=== PATIENT | male | born 1980 ===

== ENCOUNTER 2023-09-28 18:34 | Inpatient (IN) | payer MEDICAID, SELFPAY ==
[2023-09-28] VITALS (41 sets, daily range): BP systolic 94–164; BP diastolic 40–123; PULSE 67–101; RESP 13–29; TEMP 36.4; O2SAT 89–99
--- NOTE | 2023-09-28 19:15 | DI.CT_ITS ---
Exam(s) CT HEAD CERV SPINE FACIAL WO EXAM: CT HEAD CERV SPINE FACIAL WO CLINICAL HISTORY: fall, HI, weakness. TECHNIQUE: Imaging Protocol: Axial computed tomography images with coronal and sagittal reformatted images were created and reviewed COMPARISON: No exams were available for comparison FINDINGS: CT BRAIN: There are no skull fractures nor fluid in the visualized paranasal sinuses. There is no evidence of intracranial hemorrhage, mass effect, or shift of midline structures. There are no extra-axial fluid collections. The ventricles are not enlarged or shifted and there is no blo od within the ventricular system nor within the basal cisterns. CT MAXILLOFACIAL BONES: There is some mucosal thickening and fluid noted in left maxillary sinus and the floor of the left or bit appears slightly depressed. Probably sequelae of prior left orbital blowout fracture, age indete rminate. No bone dehiscence. Right maxillary sinus unremarkable. No evidence of nasal bone fractur e nor other facial fractures. Orbits appear unremarkable. CT CERVICAL SPINE: There is no evidence of fracture nor listhesis. No significant prevertebral soft tissue swelling. N o facet malalignment evident. No significant osseous lesions evident. Chronic disc space narrowing C5-6 level and anterior osseous lipping at this level evident. Facet jonathon ints at this level appear unremarkable as do the remainder of the facet joints. IMPRESSION: No acute intracranial findings on this noninfused CT scan of the brain. Asymmetric mucosal thickening small amount of fluid in the left maxillary sinus and slight depression of the floor of the left orbit.May not be acute but cannot exclude subtle orbital floor blowout frac ture.. No evidence of cervical spine fracture, malalignment, nor acute compromise of the cervical spinal can al. First read by [facility] Called by myself to hospitalist 09/29/2023 2:50 p.m. RADIATION DOSE DELIVERED: 2,368.84mGy.cm Total DLP DATA REPOSITORY: All CT scans at this facility are submitted to the National Radiology Data Registry (NRDR) Dose Index Registry (DIR) with the [employer] ([employer]). RADIATION OPTIMIZATION: All CT scans at this facility use at least one of these dose optimization te chniques: automated exposure control; mA and/or kV adjustment per patient size (includes targeted exa ms where dose is matched to clinical indication); or iterative reconstruction.
--- NOTE | 2023-09-28 19:15 | DI.CT_ITS ---
Exam(s) CT CHEST/ABD/PEL W EXAM: CT CHEST/ABD/PEL W CLINICAL HISTORY: vomiting blood, abd pain. TECHNIQUE: Imaging Protocol: Axial computed tomography images with coronal and sagittal reformatted images were created and reviewed CONTRAST MATERIAL: Intravenous: Omnipaque 350 Contrast volume:100 ml Oral: None COMPARISON: No exams were available for comparison FINDINGS: CHEST: LUNGS: No infiltrates nor pleural effusions. No ominous pulmonary nodules. No findings in the trach ea and mainstem bronchi. MEDIASTINUM: There is no hilar nor mediastinal adenopathy. Visualized thyroid unremarkable. CARDIAC: Heart size is normal. There is no pericardial effusion.Caliber of the thoracic aorta is wit hin normal limits. OSSEOUS: No significant osseous lesions.. ABDOMEN: There is no ascites. LIVER: There are no focal hepatic lesions nor dilatation of intrahepatic ducts. GALLBLADDER/BILIARY: No obvious gallbladder pathology. CBD is not dilated. PANCREAS: No evidence of pancreatic mass nor dilatation of the pancreatic duct. SPLEEN: Spleen is not enlarged. There are no intrasplenic lesions. Splenic and portal veins are kelley nt. ADRENALS: Small nodule noted in the lateral limb of the right adrenal gland measuring 1.8 x 1.0 cm. Probable incidental adenoma. Opposite-left adrenal gland is unremarkable. KIDNEYS: No calculi nor hydronephrosis. No solid renal masses. Small 7 mm benign cyst noted in the le ft kidney which does not require follow-up. URINARY BLADDER: Mild uniform thickening of the bladder wall either related to cystitis or under dist ension. ABDOMINAL AORTA: Abdominal aorta is not enlarged. LYMPH NODES: There is no retroperitoneal nor paraaortic adenopathy. ABDOMINAL WALL: No evidence of significant anterior abdominal wall nor inguinal hernia. GI: There is no evidence of bowel obstruction.There is circumferential thickening of the descending c olon and sigmoid consistent with probable colitis pattern. No diverticulitis. PELVIS: LYMPH NODES: There is no intrapelvic nor inguinal adenopathy. GI: No evidence of appendicitis.No evidence of sigmoid diverticulitis. URINARY BLADDER: Uniformly thickened bladder wall. REPRODUCTIVE: Prostate size upper normal. Seminal vesicles unremarkable. OSSEOUS: No significant osseous lesions. No fractures. IMPRESSION: 1. No significant intrathoracic findings. 2. Colitis pattern in the descending-left colon and sigmoid. No diverticulitis. RADIATION DOSE DELIVERED: 1,353.91mGy.cm Total DLP DATA REPOSITORY: All CT scans at this facility are submitted to the National Radiology Data Registry (NRDR) Dose Index Registry (DIR) with the [employer] (ACR). RADIATION OPTIMIZATION: All CT scans at this facility use at least one of these dose optimization te chniques: automated exposure control; mA and/or kV adjustment per patient size (includes targeted exa ms where dose is matched to clinical indication); or iterative reconstruction.
--- NOTE | 2023-09-28 19:15 | RT.EKG_ITS ---
APPROVED REPORT Exam: Resting ECG Reason for Exam: weakness Patient Location: E HR:95 bpm ECG Measurements Heart Rate 95 AXIS CA 168 P 77 QRSd 86 QRS 82 QT 339 T 61 QTc 428 Conclusion Sinus arrhythmia 95 no stemi
[2023-09-28] MEDS: Prochlorperazine 10 MG/2 ML VIAL IVP (19:45)
[2023-09-28] MEDS: Normal Saline 1,000 ML 1000 ML IV (19:45)
[2023-09-28] MEDS: Pantoprazole 40 MG VIAL IVP (19:45)
[2023-09-28 21:09] LABS: Abs Immature Grans 0.07 10^3/uL (0.0-0.06); Absolute Monocyte Count 1.25 10^3/uL (0.1-0.8); Absolute Neutrophil Count 14.08 10^3/uL (1.2-6.7); Basophils % 0.2 %; Eosinophils % 0.1 %; HCT 43.5 % (40.0-50.0); Immature Grans % 0.4 %; Lymphocytes % 8.4 %; MCH 31.3 pg (27.0-33.0); MCHC 34.5 % (32.0-36.0); MCV 91 fL (80-95); MPV 9.6 fL (8.0-11.0); Monocytes % 7.4 %; Neutrophils % 83.5 %; Platelet Count 264 10^3/uL (130-400); RBC 4.79 10^6/uL (4.36-5.78); RDW 13.9 % (11.8-14.1); RDW-SD 46.5 fL; WBC 16.86 10^3/uL (4.4-10.8)
[2023-09-28 21:10] LABS: Absolute Basophil Count 0.03 10^3/uL (0.0-0.2); Absolute Eosinophil Count 0.02 10^3/uL (0.0-0.7); Absolute Lymphocyte Count 1.42 10^3/uL (1.2-3.4)
[2023-09-28 21:12] LABS: Bilirubin Negative (Negative); Blood Negative (Negative); Clarity Clear (Clear); Glucose Negative (Negative); Ketones 15 mg/dL (Negative); Leukocyte Esterase Negative (Negative); Nitrite Negative (Negative); Specific Gravity >= 1.030 (1.005-1.025); Urobilinogen 0.2 mg/dL (Up to 0.2); pH 5.5 (5-8)
[2023-09-28] MEDS: Omnipaque 350 MG/ML 100 ML BTL IJ (21:16)
[2023-09-28] MEDS: Normal Saline - Diluent 50 ML VIAL IJ (21:22)
[2023-09-28 21:23] LABS: *AMPHETAMINES SCREEN URINE Negative (Negative); *BARBITURATES SCREEN URINE Positive (Negative); *BENZODIAZEPINES SCREEN URINE Negative (Negative); Cannabinoids THC Positive (Negative); Cocaine Screen,Urine Positive (Negative); METHADONE URINE SCREEN Negative (Negative); OPIATES URINE SCREEN Negative (Negative)
[2023-09-28 21:24] LABS: Tricyclic Antidepressants Negative (Negative)
[2023-09-28 21:25] LABS: Bacteria Rare HPF (Negative); C & S Indicated? No; Casts Negative LPF (Negative); Crystals Negative HPF (Negative); Epithelial Cells Rare HPF (Negative); Mucus Negative (Negative); RBC Negative HPF (0-2); WBC 0-2 HPF (0-5)
[2023-09-28 21:30] LABS: Prothrombin Time 10.5 sec (9.1-11.1)
[2023-09-28 21:31] LABS: Ammonia 15 umol/L (11-32)
[2023-09-28 21:33] LABS: ALT 29 U/L (16-63); AST 32 U/L (15-37); Albumin 3.7 g/dL (3.4-5.0); Alkaline Phosphatase 68 U/L (46-116); Anion Gap 12.4 mmol/L (3-11); BUN 14 mg/dL (7-18); Bilirubin, Total 0.6 mg/dL (0.2-1.0); CO2 23.6 mmol/L (21.0-32.0); CREATININE 0.9 mg/dL (0.70-1.30); Calcium 8.1 mg/dL (8.5-10.1); Chloride 106 mmol/L (98-107); ETHANOL BLOOD 24.8 mg/dL (<10); Estimated GFR 108.68 (mL/min/1.73m2); Glucose 90 mg/dL (74-106); Magnesium 1.9 mg/dL (1.8-2.4); Potassium 3.7 mmol/L (3.5-5.1); Sodium 142 mmol/L (136-145); Total Protein 6.8 g/dL (6.4-8.2)
--- NOTE | 2023-09-28 22:06 | DI.VRAD_ITS ---
PROCEDURE INFORMATION: Exam: CT Head Without Contrast Exam date and time: 09/28/2023 9:20 PM Age: 43 years old Clinical indication: Injury or trauma; Fall and other: Fall, hi, weakness TECHNIQUE: Imaging protocol: Computed tomography of the head without contrast. COMPARISON: No relevant prior studies available. FINDINGS: Brain: Normal. No hemorrhage. Unremarkable white matter. No mass effect. Cerebral ventricles: No ventriculomegaly. Paranasal sinuses: There is fluid in the right mastoid air cells, left maxillary sinus and bilateral ethmoid air cells. Mastoid air cells: See Paranasal sinuses finding. Bones: Unremarkable. No acute fracture. Soft tissues: Unremarkable. Other findings: There is a right lateral frontal subgaleal. IMPRESSION: No intracranial posttraumatic changes. PROCEDURE INFORMATION: Exam: CT Maxillofacial Without Contrast Exam date and time: 09/28/2023 9:20 PM Age: 43 years old Clinical indication: Injury or trauma; Fall and other: Fall, hi, weakness TECHNIQUE: Imaging protocol: Computed tomography of the face without contrast. COMPARISON: No relevant prior studies available. FINDINGS: Orbital cavities: Orbits are normal. Globes are unremarkable. Bones: No acute fracture. Paranasal sinuses: Mucosal disease of the left maxillary sinus. Soft tissues: Unremarkable. IMPRESSION: No posttraumatic changes. PROCEDURE INFORMATION: Exam: CT Cervical Spine Without Contrast Exam date and time: 09/28/2023 9:20 PM Age: 43 years old Clinical indication: Injury or trauma; Fall and other: Fall, hi, weakness TECHNIQUE: Imaging protocol: Computed tomography of the cervical spine without contrast. COMPARISON: No relevant prior studies available. 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 Narrowing of the C5-C6 with anterior osteophytes and posterior osteophytes causing mild bony canal stenosis. Lungs: Lung apices are normal. Soft tissues: Unremarkable. IMPRESSION: No posttraumatic changes in the cervical spine. Dictated and Authenticated by: Christopher Ruelas MD. Ordering:MITCHELL Viramontes MD
--- NOTE | 2023-09-28 22:28 | DI.VRAD_ITS ---
PROCEDURE INFORMATION: Exam: CT Chest With Contrast; Diagnostic Exam date and time: 09/28/2023 9:29 PM Age: 43 years old Clinical indication: Other: Vomiting blood, abd pain TECHNIQUE: Imaging protocol: Diagnostic computed tomography of the chest with contrast. 3D rendering (Not supervised by radiologist): MIP and/or 3D reconstructed images were created by the technologist. Contrast material: OMNIPAQUE; Contrast volume: 100 ml; Contrast route: INTRAVENOUS (IV); COMPARISON: CT HEAD CERV SPINE FACIAL WO 09/28/2023 9:20 PM FINDINGS: Thymus: A normal amount of residual thymus tissue is present in the anterior/superior mediastinum. Lungs: There is no evidence of focal pulmonary consolidation. Pleural spaces: There is no evidence of pneumothorax. There are no pleural effusions present. Heart: The cardiac structures are normal. The cardiac silhouette is within normal limits. Coronary arteries: No evidence of significant coronary artery atherosclerotic plaque or calcification. Mediastinal space: The mediastinum is normal. Lymph nodes: Mildly enlarged lymph nodes present within the pretracheal region measuring 15 mm in diameter. Vasculature: The pulmonary vasculature is normal. Intraperitoneal space: Please see CT of the abdomen and pelvis. Bones/joints: The spine, sternum, ribs, and pectoral girdles show no evidence of acute abnormality Soft tissues: There are no soft tissue masses or calcifications. IMPRESSION: No active cardiopulmonary disease. PROCEDURE INFORMATION: Exam: CT Abdomen And Pelvis With Contrast Exam date and time: 09/28/2023 9:29 PM Age: 43 years old Clinical indication: Other: Vomiting blood, abd pain TECHNIQUE: Imaging protocol: Computed tomography of the abdomen and pelvis with contrast. 3D rendering (Not supervised by radiologist): MIP and/or 3D reconstructed images were created by the technologist. Contrast material: OMNIPAQUE; Contrast volume: 100 ml; Contrast route: INTRAVENOUS (IV); COMPARISON: No relevant prior studies available. FINDINGS: Liver: Focal fatty change present at the falciform ligament. There are no focal liver lesions present. There is no evidence of intrahepatic or extrahepatic biliary ductal dilation. Gallbladder and bile ducts: The gallbladder is normal. There is no cholelitiasis, wall thickening or pericholecystic fluid to suggest cholecystitis. Pancreas: The pancreas is normal. Spleen: The spleen is normal. Adrenal glands: The adrenal glands are normal. Kidneys and ureters: 1 cm simple cyst present within the lower pole left kidney posteriorly. The kidneys are otherwise normal. The ureters are normal caliber and follow a normal caliber and course. Stomach and bowel: The stomach is nondistended. There is mild gastric wall thickening. Consider gastritis. There is diffuse inflammatory bowel wall thickening involving the sigmoid colon and descending colon. There is bowel wall edema. There is adjacent inflammatory change seen within the peritoneal fat and mesentery. This likely represents acute colitis. An underlying mass is not excluded. Appendix: A normal appendix is identified. There is no evidence of distention or periappendiceal inflammation to suggest appendicitis. Intraperitoneal space: There is no free intraperitoneal air. There is no evidence of free intraperitoneal or pelvic fluid. Vasculature: The aorta demonstrates mild atherosclerotic calcification. The aorta is unremarkable without evidence of significant atherosclerosis or aneurysmal disease. The peripheral arterial vascular system visualized is unremarkable. The portal venous system visualized is unremarkable. The peripheral venous vascular system visualized is unremarkable. Lymph nodes: There is no evidence of lymphadenopathy. Urinary bladder: There is nonspecific bladder wall thickening. This may be related to incomplete bladder filling. There is nonspecific bladder wall thickening. This may be related to incomplete bladder filling. Reproductive: The prostate gland and seminal vesicles are normal. Bones/joints: The skeletal structures and soft tissues show no evidence of fracture or other acute processes. Soft tissues: The extra-abdominal soft tissues are normal. There is a fat-containing umbilical hernia. IMPRESSION: 1. The stomach is nondistended. There is mild gastric wall thickening. Consider gastritis. 2. There is diffuse inflammatory bowel wall thickening involving the sigmoid colon and descending colon. There is bowel wall edema. There is adjacent inflammatory change seen within the peritoneal fat and mesentery. This likely represents acute colitis. An underlying mass is not excluded. Dictated and Authenticated by: Jacob Rae MD. Ordering:MITCHELL Viramontes MD
[2023-09-28 22:35] LABS: Lipase 53 U/L (16-77)
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
[2023-09-29] VITALS (33 sets, daily range): BP systolic 95–135; BP diastolic 65–93; PULSE 56–87; RESP 14–26; TEMP 37.2–37.8; O2SAT 90–100
[2023-09-29 00:02] LABS: PTT Activated 25.4 sec (23.6-32.8)
--- NOTE | 2023-09-29 00:06 | W.PC.ACHO ---
Registration Status: REG ER Primary Language: Preferred Language: ED Information & Data Chief Complaint Abd Prob 09/28/23 22:55 Other Complaint PsychEval 09/28/23 18:30 Triage Note 10 of 10 burning pain Lower 09/28/23 18:30 L quad of abd nausea and vomiting. Most Recent Vital Signs Temperature 36.4 C 09/28/23 18:35 Temperature Source Tympanic 09/28/23 18:35 Pulse 92 H 09/28/23 20:31 Pulse 89 09/28/23 20:40 Respiratory Rate 20 09/28/23 20:40 Respiratory Effort Normal 09/28/23 18:35 Respiratory Pattern Tachypnea 09/28/23 19:01 Blood Pressure 114/63 09/28/23 20:31 Blood Pressure Mean 78 09/28/23 20:31 Blood Pressure Position Sitting 09/28/23 18:35 Pulse Oximetry 91 L 09/28/23 20:40 Oxygen Delivery Method Room Air 09/28/23 18:35 Oxygen Flow Rate 0 09/28/23 18:35 Active Medications Generic Name Dose Route Start Last Admin Trade Name Nai PRN Reason Stop Dose Admin Iohexol 100 ml 09/28/23 21:30 09/28/23 21:16 Omnipaque 350 Mg/Ml 100 Ml Btl IJ 10/28/23 23:59 100 ml DIRECTED TEOFILO Administration Sodium Chloride 50 ml 09/28/23 21:30 09/28/23 21:22 Normal Saline - Diluent 50 Ml Vial IJ 50 ml .FOR DI USE TEOFILO Administration IV IV Catheter Type [Antecubital] Peripheral IV IV Catheter Gauge [Antecubital 18 ] Diet Orders Category Date Time Status Regular/Normal [DIET] Nutrition 09/29/23 Breakfast Ordered Diagnostics 09/28/23 09/28/23 09/28/23 Range/Units Unknown 21:04 21:00 WBC Pending 16.86 H (4.4-10.8) 10^3/uL RBC Pending 4.79 (4.36-5.78) 10^6/uL Hgb Pending 15.0 (13.5-17.5) g/dL Hct Pending 43.5 (40.0-50.0) % MCV Pending 91 (80-95) fL MCH Pending 31.3 (27.0-33.0) pg MCHC Pending 34.5 (32.0-36.0) % RDW Pending 13.9 (11.8-14.1) % Plt Count Pending 264 (130-400) 10^3/uL MPV Pending 9.6 (8.0-11.0) fL Immature Gran % 0.4 % Neutrophils % 83.5 % Lymphocytes % 8.4 % Monocytes % 7.4 % Eosinophils % 0.1 % Basophils % 0.2 % Nucleated RBC % 0.0 (0.0-0.3) % Absolute Neutrophils 14.08 H (1.2-6.7) 10^3/uL Absolute Lymphocytes 1.42 (1.2-3.4) 10^3/uL Absolute Monocytes 1.25 H (0.1-0.8) 10^3/uL Absolute Eosinophils 0.02 (0.0-0.7) 10^3/uL Absolute Basophils 0.03 (0.0-0.2) 10^3/uL PT 10.5 (9.1-11.1) sec INR 1.0 (0.9-1.1) APTT Pending Sodium 142 (136-145) mmol/L Potassium 3.7 (3.5-5.1) mmol/L Chloride 106 (98-107) mmol/L Carbon Dioxide 23.6 (21.0-32.0) mmol/L Anion Gap 12.4 H (3-11) mmol/L BUN 14 (7-18) mg/dL Creatinine 0.9 (0.70-1.30) mg/dL Est GFR (CKD-EPI 2020) 108.68 (mL/min/1.73m2) Glucose 90 (74-106) mg/dL Calcium 8.1 L (8.5-10.1) mg/dL Magnesium 1.9 (1.8-2.4) mg/dL Total Bilirubin 0.6 (0.2-1.0) mg/dL AST 32 (15-37) U/L ALT 29 (16-63) U/L Alkaline Phosphatase 68 (46-116) U/L Ammonia 15 (11-32) umol/L Total Protein 6.8 (6.4-8.2) g/dL Albumin 3.7 (3.4-5.0) g/dL Lipase 53 (16-77) U/L Urine Color (Yellow) Urine Clarity (Clear) Urine pH (5-8) Ur Specific [place] (1.005-1.025) Urine Protein (Neg-Trace) mg/dL Urine Ketones (Negative) mg/dL Urine Blood (Negative) Urine Nitrite (Negative) Urine Bilirubin (Negative) Urine Urobilinogen (Up to 0.2) mg/dL Ur Leukocyte Esterase (Negative) Urine RBC (0-2) HPF Urine WBC (0-5) HPF Ur Epithelial Cells (Negative) HPF Urine Crystals (Negative) HPF Urine Bacteria (Negative) HPF Urine Casts (Negative) LPF Urine Mucus (Negative) Ur Culture Indicated? Urine Glucose (Negative) mg/dL Urine Opiates Screen (Negative) Urine Methadone Screen (Negative) Ur Barbiturates Screen (Negative) Ur Tricyclics Screen (Negative) Ur Amphetamines Screen (Negative) U Benzodiazepines Scrn (Negative) Urine Cocaine Screen (Negative) Ur THC Screen (Negative) Ethyl Alcohol 24.8 H (<10) mg/dL ABO/Rh A Negative Antibody Screen NEGATIVE 09/28/23 Range/Units 20:55 WBC (4.4-10.8) 10^3/uL RBC (4.36-5.78) 10^6/uL Hgb (13.5-17.5) g/dL Hct (40.0-50.0) % MCV (80-95) fL MCH (27.0-33.0) pg MCHC (32.0-36.0) % RDW (11.8-14.1) % Plt Count (130-400) 10^3/uL MPV (8.0-11.0) fL Immature Gran % % Neutrophils % % Lymphocytes % % Monocytes % % Eosinophils % % Basophils % % Nucleated RBC % (0.0-0.3) % Absolute Neutrophils (1.2-6.7) 10^3/uL Absolute Lymphocytes (1.2-3.4) 10^3/uL Absolute Monocytes (0.1-0.8) 10^3/uL Absolute Eosinophils (0.0-0.7) 10^3/uL Absolute Basophils (0.0-0.2) 10^3/uL PT (9.1-11.1) sec INR (0.9-1.1) APTT Sodium (136-145) mmol/L Potassium (3.5-5.1) mmol/L Chloride (98-107) mmol/L Carbon Dioxide (21.0-32.0) mmol/L Anion Gap (3-11) mmol/L BUN (7-18) mg/dL Creatinine (0.70-1.30) mg/dL Est GFR (CKD-EPI 2020) (mL/min/1.73m2) Glucose (74-106) mg/dL Calcium (8.5-10.1) mg/dL Magnesium (1.8-2.4) mg/dL Total Bilirubin (0.2-1.0) mg/dL AST (15-37) U/L ALT (16-63) U/L Alkaline Phosphatase (46-116) U/L Ammonia (11-32) umol/L Total Protein (6.4-8.2) g/dL Albumin (3.4-5.0) g/dL Lipase (16-77) U/L Urine Color Yellow (Yellow) Urine Clarity Clear (Clear) Urine pH 5.5 (5-8) Ur Specific [place] >= 1.030 H (1.005-1.025) Urine Protein 30 H (Neg-Trace) mg/dL Urine Ketones 15 H (Negative) mg/dL Urine Blood Negative (Negative) Urine Nitrite Negative (Negative) Urine Bilirubin Negative (Negative) Urine Urobilinogen 0.2 (Up to 0.2) mg/dL Ur Leukocyte Esterase Negative (Negative) Urine RBC Negative (0-2) HPF Urine WBC 0-2 (0-5) HPF Ur Epithelial Cells Rare (Negative) HPF Urine Crystals Negative (Negative) HPF Urine Bacteria Rare (Negative) HPF Urine Casts Negative (Negative) LPF Urine Mucus Negative (Negative) Ur Culture Indicated? No Urine Glucose Negative (Negative) mg/dL Urine Opiates Screen Negative (Negative) Urine Methadone Screen Negative (Negative) Ur Barbiturates Screen Positive A (Negative) Ur Tricyclics Screen Negative (Negative) Ur Amphetamines Screen Negative (Negative) U Benzodiazepines Scrn Negative (Negative) Urine Cocaine Screen Positive A (Negative) Ur THC Screen Positive A (Negative) Ethyl Alcohol (<10) mg/dL ABO/Rh Antibody Screen Intake and Output - 24 Hour Total 09/28/23 18:25 thru 09/28/23 18:30 Weight 86 kg Falls Risk Assessment History of Falls No History 09/28/23 18:35 Contributing Factors No Factors 09/28/23 18:35 Fall Total Score 0 09/28/23 18:35 Level of Risk Standard/Low Risk 09/28/23 18:35 Problems Polysubstance abuse (Chronic) Colitis (Acute) Gastritis (Acute) Hematemesis (Acute) Alcohol withdrawal delirium, acute, hyperactive (Acute) v v v v v v v v v Sending and/or Receiving Nurses: Please use comment section below to note any information pertinent to the patient hand-off not included above. Information / Comments: Report received from: Ryan GARLAND
[2023-09-29] MEDS: PHENobarbital 140 MG in Normal Saline 50 ML 100 MG IVPB ×2 (00:47→04:19)
[2023-09-29] MEDS: Lactated Ringers 1,000 ML 1000 ML IV (00:49)
[2023-09-29 01:01] LABS: HCT 41.1 % (40.0-50.0); HGB 14.2 g/dL (13.5-17.5); MCH 31.3 pg (27.0-33.0); MCHC 34.5 % (32.0-36.0); MCV 91 fL (80-95); MPV 9.5 fL (8.0-11.0); Platelet Count 244 10^3/uL (130-400); RBC 4.53 10^6/uL (4.36-5.78); WBC 14.36 10^3/uL (4.4-10.8)
[2023-09-29] MEDS: Lactated Ringers 1,000 ML 125 ML IV ×2 (01:50→18:55)
[2023-09-29] MEDS: PIPERACILLIN/TAZO 3.375 GM in Normal Saline 50 ML IVPB ×4 (02:37→19:58)
[2023-09-29] MEDS: Ketorolac 15 MG/ML VIAL IVP (06:23)
[2023-09-29 06:29] LABS: Abs Immature Grans 0.03 10^3/uL (0.0-0.06); Absolute Basophil Count 0.05 10^3/uL (0.0-0.2); Absolute Eosinophil Count 0.04 10^3/uL (0.0-0.7); Absolute Monocyte Count 1.23 10^3/uL (0.1-0.8); Absolute Neutrophil Count 6.91 10^3/uL (1.2-6.7); Basophils % 0.5 %; Eosinophils % 0.4 %; HCT 39.8 % (40.0-50.0); HGB 13.7 g/dL (13.5-17.5); Immature Grans % 0.3 %; Lymphocytes % 22.5 %; MCH 31.6 pg (27.0-33.0); MCHC 34.4 % (32.0-36.0); MCV 92 fL (80-95); Monocytes % 11.5 %; Neutrophils % 64.8 %; Platelet Count 247 10^3/uL (130-400); RBC 4.33 10^6/uL (4.36-5.78); RDW-SD 47.3 fL; WBC 10.66 10^3/uL (4.4-10.8)
[2023-09-29 06:47] LABS: ALT 25 U/L (16-63); AST 29 U/L (15-37); Albumin 3.2 g/dL (3.4-5.0); Alkaline Phosphatase 61 U/L (46-116); Anion Gap 8.2 mmol/L (3-11); BUN 12 mg/dL (7-18); Bilirubin, Total 1.2 mg/dL (0.2-1.0); CO2 25.8 mmol/L (21.0-32.0); CREATININE 0.8 mg/dL (0.70-1.30); Chloride 107 mmol/L (98-107); Estimated GFR 112.61 (mL/min/1.73m2); Glucose 86 mg/dL (74-106); PHOSPHORUS 3.6 mg/dL (2.6-4.7); Potassium 3.5 mmol/L (3.5-5.1); Sodium 141 mmol/L (136-145)
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
--- NOTE | 2023-09-29 08:31 | W.SURGCON ---
Date of service: 09/29/23 Time of Service: 12:04 Assessment and Plan Assessment and plan (1) Hematemesis: Status: Acute Assessment and plan: 43-year-old man who has GI tract bleeding clinically, on and off, that is very chronic by history. Acutely he is hemodynamically stable and has a normal hemoglobin, normal platelet count and normal coagulation profile. Nothing needs to be done emergently. He certainly should get an upper and lower endoscopy at some point, but on a somewhat routine basis and from an overall health standpoint. I reviewed his CT scan which shows somewhat diffuse colon inflammation and also evidence of gastritis. His pancreas looks normal. No pseudocyst or evidence of chronic pancreatitis. With the story of seeing blood in his stools for a number of years, it is possible inflammatory bowel disease is playing a role on the colon end of things. His abdomen exam is completely benign. With the amount of drinking he describes them sure he has severe gastritis and that would be the explanation for seeing the blood in vomiting. That is probably the explanation for the severe pain he has when he is drinking too. It may not be pancreatitis at all and he may simply have severe gastritis and/or ulcers related to the drinking and they get irritated when he drinks. He is unstable at this point medically and psychologically in regards to substance abuse and mental status. He does not need to have upper and lower endoscopy from an acute standpoint and there is no evidence of acute, life?threatening bleeding which would warrant us to do scopes more urgently. Our surgical team is happy to facilitate elective upper and lower endoscopy for him when his other acute issues have stabilized and resolved. I did recommend to him today that he should have these procedures performed but that ultimately it is up to him and it is his personal decision to have them done. He is going to think about it. I think when he is stable enough psychologically and his withdrawal/detox has been completed, essentially when he is stable enough to be discharged, we should have another discussion about timing and scheduling the procedures for him. I would empirically treat him for gastritis/ulcer disease. I do not think the colitis seen on CT scan needs to be treated at this time. I would see how he responds clinically to hydration and detox first. I doubt it is an infectious or bacterial problem at this time clinically. Surgery team signing off for now. Qualifiers: Nausea presence: with nausea Qualified Code(s): K92.0 - Hematemesis History of Present Illness Narrative: Ross is a pleasant 43-year-old man who is currently admitted in the ICU because of having withdrawal/detox delirium and suicidal ideation. The medical team consulted the surgical team because he has reportedly been seeing some blood in vomitus. At the bedside Ross reports that all of these things have been going on for years. He tells me in [place], where I used to live, they found problems with my pancreas. He says his pancreas only acts up when he drinks heavily. He says sometimes the pain is so severe it doubles him right over. If he does not drink it does not hurt. In regards to bleeding he says that is been going on for couple of years at least. He says sometimes blood comes out of his nose spontaneously. Other times he will cough up blood. Sometimes when he vomits there is streaks of blood and mucus. He sees blood in his stools on a regular basis. He has never had a colonoscopy or an upper endoscopy. He denies a family history of colon cancer. He says he does not particularly want to have a colonoscopy but would be willing to have one done if it is necessary. Again, he is adamant that he has been seeing blood both from above and below for more than a couple of years. His hemoglobin here is normal. He denies having ever had any significant intra-abdominal surgery. He has a PCP who he states has been his doctor for couple years over in [facility]. PFSH All Active Problems (Updated 09/28/23 @ 23:13 by KERMIT Chun) Polysubstance abuse (Chronic) Colitis (Acute) Gastritis (Acute) Hematemesis (Acute) Alcohol withdrawal delirium, acute, hyperactive (Acute) Social History Smoking/Tobacco Use Status: Unknown Smoking risk assessment performed?: Yes Alcohol Intake: current Alcohol Intake frequency: 3 or more drinks per day Alcohol type: beer, wine and hard liquor Drug use: Occasionally Substance use type: marijuana, crack/cocaine, heroin and painkillers Exam Narrative Exam Narrative: General: Somewhat disheveled but overall healthy middle-aged appearance. Neuro: Alert and oriented x 3 today Psych: Upbeat and cheerful mood and affect, seemingly good insight and understanding into his conditions both historically and currently Abdomen: Soft, nondistended and nontender Results Last Vital Signs Temp 99.0 F 09/29/23 03:30 Pulse 72 09/29/23 07:01 Resp 20 09/29/23 07:01 BP 115/93 H 09/29/23 07:01 Pulse Ox 91 L 09/29/23 07:01 Labs 09/29/23 05:55 09/29/23 05:55 Labs: Laboratory Results - last 24 hr 09/28/23 09/28/23 09/28/23 20:55 21:00 21:04 WBC 16.86 H RBC 4.79 Hgb 15.0 Hct 43.5 MCV 91 MCH 31.3 MCHC 34.5 RDW 13.9 Plt Count 264 MPV 9.6 Immature Gran % 0.4 Neutrophils % 83.5 Lymphocytes % 8.4 Monocytes % 7.4 Eosinophils % 0.1 Basophils % 0.2 Nucleated RBC % 0.0 Absolute Neutrophils 14.08 H Absolute Lymphocytes 1.42 Absolute Monocytes 1.25 H Absolute Eosinophils 0.02 Absolute Basophils 0.03 PT 10.5 INR 1.0 APTT 25.4 Sodium 142 Potassium 3.7 Chloride 106 Carbon Dioxide 23.6 Anion Gap 12.4 H BUN 14 Creatinine 0.9 Est GFR (CKD-EPI 2020) 108.68 Glucose 90 Calcium 8.1 L Phosphorus Magnesium 1.9 Total Bilirubin 0.6 AST 32 ALT 29 Alkaline Phosphatase 68 Ammonia 15 Total Protein 6.8 Albumin 3.7 Lipase 53 Urine Color Yellow Urine Clarity Clear Urine pH 5.5 Ur Specific [place] >= 1.030 H Urine Protein 30 H Urine Ketones 15 H Urine Blood Negative Urine Nitrite Negative Urine Bilirubin Negative Urine Urobilinogen 0.2 Ur Leukocyte Esterase Negative Urine RBC Negative Urine WBC 0-2 Ur Epithelial Cells Rare Urine Crystals Negative Urine Bacteria Rare Urine Casts Negative Urine Mucus Negative Ur Culture Indicated? No Urine Glucose Negative Urine Opiates Screen Negative Urine Methadone Screen Negative Ur Barbiturates Screen Positive A Ur Tricyclics Screen Negative Ur Amphetamines Screen Negative U Benzodiazepines Scrn Negative Urine Cocaine Screen Positive A Ur THC Screen Positive A Ethyl Alcohol 24.8 H ABO/Rh A Negative Antibody Screen NEGATIVE 09/29/23 09/29/23 09/29/23 00:50 05:35 05:55 WBC 14.36 H 10.66 RBC 4.53 4.33 L Hgb 14.2 13.7 Hct 41.1 39.8 L MCV 91 92 MCH 31.3 31.6 MCHC 34.5 34.4 RDW 14.0 14.0 Plt Count 244 247 MPV 9.5 10.0 Immature Gran % 0.3 Neutrophils % 64.8 Lymphocytes % 22.5 Monocytes % 11.5 Eosinophils % 0.4 Basophils % 0.5 Nucleated RBC % 0.0 Absolute Neutrophils 6.91 H Absolute Lymphocytes 2.40 Absolute Monocytes 1.23 H Absolute Eosinophils 0.04 Absolute Basophils 0.05 PT INR APTT Sodium 141 Potassium 3.5 Chloride 107 Carbon Dioxide 25.8 Anion Gap 8.2 BUN 12 Creatinine 0.8 Est GFR (CKD-EPI 2020) 112.61 Glucose 86 Calcium 8.0 L Phosphorus Cancelled 3.6 Magnesium Cancelled 2.0 Total Bilirubin 1.2 H AST 29 ALT 25 Alkaline Phosphatase 61 Ammonia Total Protein 6.0 L Albumin 3.2 L Lipase Urine Color Urine Clarity Urine pH Ur Specific [place] Urine Protein Urine Ketones Urine Blood Urine Nitrite Urine Bilirubin Urine Urobilinogen Ur Leukocyte Esterase Urine RBC Urine WBC Ur Epithelial Cells Urine Crystals Urine Bacteria Urine Casts Urine Mucus Ur Culture Indicated? Urine Glucose Urine Opiates Screen Urine Methadone Screen Ur Barbiturates Screen Ur Tricyclics Screen Ur Amphetamines Screen U Benzodiazepines Scrn Urine Cocaine Screen Ur THC Screen Ethyl Alcohol ABO/Rh Antibody Screen
[2023-09-29] MEDS: MULTIVITAMIN 10 ML, THIAMINE 100 MG, FOLIC ACID 1 MG in DEXTROSE 5%-0.45% SALINE 1,000 ML 42 ML IV (08:58)
[2023-09-29] MEDS: Normal Saline Flush 10 ML SYR IVP ×6 (09:14→20:00)
[2023-09-29] MEDS: Pantoprazole 40 MG VIAL IVP ×2 (09:14→19:59)
[2023-09-29] MEDS: PHENobarbital 130 MG/ML VIAL IVP ×4 (09:30→20:36)
--- NOTE | 2023-09-29 10:53 | W.PM.PROGNOT ---
Date of Service Date of service: 09/29/23 Time of Service: 10:53 Assessment and Plan Assessment and plan (1) Alcohol withdrawal delirium, acute, hyperactive: Status: Acute Assessment and plan: -long history of alcohol abuse and polysubstance abuse [place] the ED [place] with active alcohol withdrawal and delirium. -He responded well to phenobarbital and will continue that protocol. -has only required two additional doses of PRN 130mg IV phenobarb since admission -psychiatry to see him after he is medically cleared because of suicidal ideation (2) Hematemesis: Status: Acute Assessment and plan: -Patient did have brown emesis and imaging did reveal gastritis. -He will be treated for gastritis with Protonix 40 mg IV twice daily and he will have surgical consultation for evaluation. -He may require upper endoscopy if symptoms persist. Qualifiers: Nausea presence: with nausea Qualified Code(s): K92.0 - Hematemesis (3) Gastritis: Status: Acute Assessment and plan: -No further emesis or pain with patient to continue Protonix IV with Zofran for nausea. Qualifiers: Chronicity: acute Gastritis bleeding: with bleeding Gastritis type: alcoholic Qualified Code(s): K29.21 - Alcoholic gastritis with bleeding (4) Colitis: Status: Acute Assessment and plan: -By imaging patient does have inflammation of his colon though is nontender. -His white count is elevated. -was started on zosyn, will continue (5) Polysubstance abuse: Status: Chronic Assessment and plan: -Patient does drink alcohol heavily with alcohol withdrawal in the past and does have polysubstance abuse avoiding street opioids because of near experience with overdose. -Patient will have Toradol for his contusions of the face though he does have a allergy to naproxen he has taken ibuprofen in the past without difficulty. -We will avoid narcotics for pain. -We also will avoid NSAIDs orally because of gastritis. Exam Narrative Exam Narrative: Well-appearing gentleman laying in bed in no acute distress, ANO x 4, heart regular rate rhythm, lungs clear to auscultation bilaterally, abdomen soft, nontender, nondistended, significant bruising to bilateral temples, extraocular muscles intact Objective Last Vital Signs Temp 99.0 F 09/29/23 03:30 Pulse 66 09/29/23 10:01 Resp 19 09/29/23 10:01 BP 121/79 09/29/23 10:01 Pulse Ox 91 L 09/29/23 10:01 Laboratory Results - last 24 hr 09/28/23 09/28/23 09/28/23 20:55 21:00 21:04 WBC 16.86 H RBC 4.79 Hgb 15.0 Hct 43.5 MCV 91 MCH 31.3 MCHC 34.5 RDW 13.9 Plt Count 264 MPV 9.6 Immature Gran % 0.4 Neutrophils % 83.5 Lymphocytes % 8.4 Monocytes % 7.4 Eosinophils % 0.1 Basophils % 0.2 Nucleated RBC % 0.0 Absolute Neutrophils 14.08 H Absolute Lymphocytes 1.42 Absolute Monocytes 1.25 H Absolute Eosinophils 0.02 Absolute Basophils 0.03 PT 10.5 INR 1.0 APTT 25.4 Sodium 142 Potassium 3.7 Chloride 106 Carbon Dioxide 23.6 Anion Gap 12.4 H BUN 14 Creatinine 0.9 Est GFR (CKD-EPI 2020) 108.68 Glucose 90 Calcium 8.1 L Phosphorus Magnesium 1.9 Total Bilirubin 0.6 AST 32 ALT 29 Alkaline Phosphatase 68 Ammonia 15 Total Protein 6.8 Albumin 3.7 Lipase 53 Urine Color Yellow Urine Clarity Clear Urine pH 5.5 Ur Specific [place] >= 1.030 H Urine Protein 30 H Urine Ketones 15 H Urine Blood Negative Urine Nitrite Negative Urine Bilirubin Negative Urine Urobilinogen 0.2 Ur Leukocyte Esterase Negative Urine RBC Negative Urine WBC 0-2 Ur Epithelial Cells Rare Urine Crystals Negative Urine Bacteria Rare Urine Casts Negative Urine Mucus Negative Ur Culture Indicated? No Urine Glucose Negative Urine Opiates Screen Negative Urine Methadone Screen Negative Ur Barbiturates Screen Positive A Ur Tricyclics Screen Negative Ur Amphetamines Screen Negative U Benzodiazepines Scrn Negative Urine Cocaine Screen Positive A Ur THC Screen Positive A Ethyl Alcohol 24.8 H ABO/Rh A Negative Antibody Screen NEGATIVE 09/29/23 09/29/23 09/29/23 00:50 05:35 05:55 WBC 14.36 H 10.66 RBC 4.53 4.33 L Hgb 14.2 13.7 Hct 41.1 39.8 L MCV 91 92 MCH 31.3 31.6 MCHC 34.5 34.4 RDW 14.0 14.0 Plt Count 244 247 MPV 9.5 10.0 Immature Gran % 0.3 Neutrophils % 64.8 Lymphocytes % 22.5 Monocytes % 11.5 Eosinophils % 0.4 Basophils % 0.5 Nucleated RBC % 0.0 Absolute Neutrophils 6.91 H Absolute Lymphocytes 2.40 Absolute Monocytes 1.23 H Absolute Eosinophils 0.04 Absolute Basophils 0.05 PT INR APTT Sodium 141 Potassium 3.5 Chloride 107 Carbon Dioxide 25.8 Anion Gap 8.2 BUN 12 Creatinine 0.8 Est GFR (CKD-EPI 2020) 112.61 Glucose 86 Calcium 8.0 L Phosphorus Cancelled 3.6 Magnesium Cancelled 2.0 Total Bilirubin 1.2 H AST 29 ALT 25 Alkaline Phosphatase 61 Ammonia Total Protein 6.0 L Albumin 3.2 L Lipase Urine Color Urine Clarity Urine pH Ur Specific [place] Urine Protein Urine Ketones Urine Blood Urine Nitrite Urine Bilirubin Urine Urobilinogen Ur Leukocyte Esterase Urine RBC Urine WBC Ur Epithelial Cells Urine Crystals Urine Bacteria Urine Casts Urine Mucus Ur Culture Indicated? Urine Glucose Urine Opiates Screen Urine Methadone Screen Ur Barbiturates Screen Ur Tricyclics Screen Ur Amphetamines Screen U Benzodiazepines Scrn Urine Cocaine Screen Ur THC Screen Ethyl Alcohol ABO/Rh Antibody Screen PAWSS Have you Been Recently Intoxicated or Drunk Within the Last 30 days?: Yes Have you Ever Experienced Previous Episodes of Alcohol Withdrawal?: Yes Have you ever Experienced Withdrawal Seizures?: Yes Have you ever Experienced Delirium Tremens(DT)s?: Yes Have you ever undergone Alcohol Rehabilitation Treatment (i.e, inpt ot outpatient treatment programs)?: Yes Have you ever Experienced Blackouts?: Yes Have you ever Combined Alcohol with other Downers within the last 90 days?: Yes Have you ever Combined Alcohol with any other Substance of Abuse during the last 90 days?: Yes Positive Blood Alcohol level on Presentation? [PCS.BAL]: Yes Evidence of Increased Autonomic Activity (i.e. HR>120, tremor, sweating, agitation, nausea)?: Yes Result: 10 Time Spent with Patient Time Spent with Patient: >50 minutes Time was spent: preparing to see the patient(eg.review tests), obtaining and/or reviewing separately otained hiistory, ordering medications,tests, procedures, referring, communicating with other health care program resident, indepentently interpreting results, counseling the patient and care coordination
--- NOTE | 2023-09-29 17:58 | PDOC.CMSAFE ---
Date of service: 09/29/23 Time of Service: 17:58 Care Management Safety Plan Status Status: Voluntary Reason for Wait Reason for Wait: Assessment/Screening Safety Plan Safety Plan: Chief Complaint: Jacob was brought to the ED from the [facility] when he began vomiting bloody emesis and exhibited signs of withdrawal. He also made statements about having SI. He was admitted to the ICU. Today Jacob denies SI however he will be screened by when medically cleared, likely tomorrow.. CM will assess patient after patient has been medically cleared and assessed by screener. If screener deems patient meets criteria for psychiatric stabilization CM will facilitate interdepartmental huddle with [facility] screener for safety planning considerations and meet with patient to review [facility] policy and safety plan, establish individual wishes for treatment and maintain patient rights. In the interim; please note safety plan below to guide patient care while awaiting further assessment in the ED.? SAFETY PLAN: 1. Will remain on suicide precautions but may wear hospital casper..? 2. Will remain in room under direct supervision of staff at all times provided by DEREK, [employer] diet counselor. 3. May have utensils with which to eat meals. 4. Follow [facility] Management of the Admitted Behavioral Health Patient policy. 5. Personal care: Comfort bath system only at this time. 6. Bathroom privileges in room in ICU. 6. No personal belongings at this time; per RN discretion. 7. No visitors at this time. 8. Phone contact at nursing's discretion. 9. Activities: Television and remote available at RN discretion. 10. Due to VOLUNTARY status, if patient wishes to leave [facility], staff will contact [facility] Crisis Screener ([phone]) and [employer] ([phone]) as soon as possible. In the event of elopement, notify [place] [employer] ([phone]). ?If deemed appropriate for inpatient psychiatric care, safety plan will be established with patient, and care team, to adhere to patient goals, identify restrictions based on behavioral status, address nutrition, and determine allowed personal belongings, tools for hygiene and personal care. As well plan will
[2023-09-29] MEDS: Ketorolac 30 MG/ML VIAL IVP (23:55)
[2023-09-30] VITALS (18 sets, daily range): BP systolic 96–132; BP diastolic 68–100; PULSE 50–88; RESP 15–28; TEMP 36.4–37.1; O2SAT 88–97
[2023-09-30] MEDS: PIPERACILLIN/TAZO 3.375 GM in Normal Saline 50 ML IVPB ×2 (01:23→08:39)
[2023-09-30] MEDS: Lactated Ringers 1,000 ML 125 ML IV ×2 (02:27→11:20)
[2023-09-30 06:23] LABS: HCT 37.1 % (40.0-50.0); HGB 12.8 g/dL (13.5-17.5); MCH 31.3 pg (27.0-33.0); MCHC 34.5 % (32.0-36.0); MCV 91 fL (80-95); MPV 10.5 fL (8.0-11.0); Platelet Count 221 10^3/uL (130-400); RBC 4.09 10^6/uL (4.36-5.78); RDW 13.7 % (11.8-14.1); RDW-SD 45.9 fL; WBC 7.26 10^3/uL (4.4-10.8)
[2023-09-30 06:38] LABS: Anion Gap 8.5 mmol/L (3-11); BUN 7 mg/dL (7-18); CO2 25.5 mmol/L (21.0-32.0); CREATININE 0.8 mg/dL (0.70-1.30); Calcium 7.9 mg/dL (8.5-10.1); Chloride 106 mmol/L (98-107); Estimated GFR 112.61 (mL/min/1.73m2); Glucose 98 mg/dL (74-106); Potassium 3.4 mmol/L (3.5-5.1); Sodium 140 mmol/L (136-145)
[2023-09-30] MEDS: Pantoprazole 40 MG VIAL IVP (08:30)
[2023-09-30] MEDS: Ketorolac 30 MG/ML VIAL IVP (08:30)
[2023-09-30] MEDS: Normal Saline Flush 10 ML SYR IVP (08:30)
--- NOTE | 2023-09-30 13:11 | W.PM.DS.N ---
Date of service: 09/30/23 Time of Service: 14:39 DS: Diagnosis Discharge Diagnosis (1) Alcohol withdrawal delirium, acute, hyperactive: Status: Acute Asessment and Plan: -long history of alcohol abuse and polysubstance abuse presented to the ED from the local police station with active alcohol withdrawal and delirium. -He responded well to phenobarbital and will continue that protocol. -has only required two additional doses of PRN 130mg IV phenobarb since admission -psychiatry saw him and has been cleared for discharge with safety plan in place (2) Hematemesis: Status: Acute (3) Gastritis: Status: Acute (4) Colitis: Status: Acute Asessment and Plan: -recieved IV zosyn, but given that patient never complained of nausea, vomiting, diarrhea or abdominal pain he will not be discharged with additional antibiotics (5) Polysubstance abuse: Status: Chronic Discharge Plan Disposition Patient Disposition: Home Condition: Good Discharge Details Reason For Visit: Alcohol Withdrawal with Delirium,Hematemesis Colit Admit Date/Time: 09/28/23 22:59 Admit Provider: Son Montague Attending Provider: Son Montague Primary Care Provider: Unknown,Unknown Hospital Course Hospital Course: [facility] [place] [facility] [place] [facility] with concerns for alcohol withdrawal for which she was treated with a loading dose and subsequent as needed doses of phenobarbital. Alcohol withdrawal symptoms have resolved. Additionally, patient had findings on CT consistent with possible enterocolitis for which she was on IV antibiotics and is being discharged without additional antibiotics as the patient has not had any nausea vomiting or diarrhea does not complain of any abdominal pain. Home Meds and New Rx's Prescriptions: New pantoprazole [Protonix] 40 mg tablet,delayed release (DR/EC) 40 mg PO DAILY Qty: 90 0RF Discharge Instructions Activity:: Activity as Tolerated Equipment/Supplies:: No Equipment Needed Diet:: As Tolerated Discharge Orders Discharge Orders: Discharge Order (Routine); Ordered 09/30/23 Ordered By: Ryan Hargrove Discharge Data Discharge Date/Time-TO BE ENTERED AT DEPARTURE: 09/30/23 13:44 DS: Summary Time Spent with Patient providing and/or coordinating discharge services: Greater than 30 minutes Status at Discharge Functional status at discharge: independent ambulation Overall status at discharge: patient is back to baseline Mental Status: mental status grossly normal Speech and Movement: speech and movement normal Mood: congruent mood Affect: normal affect Quality:SDOH Health Related Social Needs: No Data to Display Exam Narrative Exam Narrative: Well-appearing gentleman laying in bed in no acute distress, ANO x 4, heart regular rate rhythm, lungs clear to auscultation bilaterally, abdomen soft, nontender, nondistended, significant bruising to bilateral temples, extraocular muscles intact Psych Mental Status: mental status grossly normal Speech and Movement: speech and movement normal Mood: congruent mood Affect: normal affect DS: Data Vitals/I&O Vitals and I&O: Vital Signs Temperature 97.5 F L 09/30/23 09:12 Temperature Source Temporal Artery Scan 09/30/23 09:12 Pulse 84 09/30/23 09:01 Pulse 77 09/30/23 09:01 Respiratory Rate 18 09/30/23 09:01 Respiratory Effort Normal, Non-Labored 09/30/23 09:12 Respiratory Depth Normal 09/30/23 09:12 Respiratory Pattern Normal 09/30/23 09:12 Blood Pressure 128/97 H 09/30/23 09:01 Blood Pressure Mean 108 09/30/23 09:01 Blood Pressure Position Left Lateral 09/30/23 00:00 Pulse Oximetry 92 09/30/23 09:12 Oxygen Delivery Method Room Air 09/30/23 09:12 Oxygen Flow Rate 0 09/30/23 09:12 Pain Level 0 09/30/23 09:12 Intake & Output 09/29/23 09/30/23 09/30/23 17:59 05:59 17:59 Intake Total 1411.667 / 0768.962 2094.2 / 3647.867 2350 / 2350 Output Total 450 / 450 950 / 1400 750 / 750 Balance 961.667 / 875.768 3684.2 / 2247.867 1600 / 1600 Intake: IV 1011.667 / 7702.110 5677.2 / 3122.867 2049 / 2049 Oral 400 / 400 125 / 525 300 / 300 Output: Urine 450 / 450 950 / 1400 750 / 750 Other: Urine Color Dark Madai Yellow Pale Urine Appearance Clear Clear Clear Urine Odor Strong Normal None Comment No void at this assessment. concentrated - uses urinal at bedside No void at this time. Voiding Methods Urinal Urinal Data Completed and Pending Labs on day of discharge: Labs from last 24 hours 09/30/23 05:45 WBC 7.26 RBC 4.09 L Hgb 12.8 L Hct 37.1 L MCV 91 MCH 31.3 MCHC 34.5 RDW 13.7 Plt Count 221 MPV 10.5 Sodium 140 Potassium 3.4 L Chloride 106 Carbon Dioxide 25.5 Anion Gap 8.5 BUN 7 Creatinine 0.8 Est GFR (CKD-EPI 2020) 112.61 Glucose 98 Calcium 7.9 L Preliminary micro results at discharge 09/29/23 01:50 Blood Culture - Preliminary Blood NO GROWTH 24 HOURS 09/29/23 01:56 Blood Culture - Preliminary Blood NO GROWTH 24 HOURS PFSH All Active Problems (Updated 09/28/23 @ 23:13 by KERMIT Chun) Polysubstance abuse (Chronic) Colitis (Acute) Gastritis (Acute) Hematemesis (Acute) Alcohol withdrawal delirium, acute, hyperactive (Acute) Social History Smoking/Tobacco Use Status: Unknown Smoking risk assessment performed?: Yes Alcohol Intake: current Alcohol Intake frequency: 3 or more drinks per day Alcohol type: beer, wine and hard liquor Drug use: Occasionally Substance use type: marijuana, crack/cocaine, heroin and painkillers Time Spent with Patient Time Spent with Patient: <45 minutes Time was spent: preparing to see the patient(eg.review tests), obtaining and/or reviewing separately otained hiistory, ordering medications,tests, procedures, referring, communicating with other health health care marketing specialist, indepentently interpreting results, counseling the patient and care coordination
--- NOTE | 2023-09-30 16:28 | PDOC.CMDIS ---
Date of service: 09/30/23 Time of Service: 16:28 LACE Index Scoring Tool Questions: Length of Stay (in days): 2 Was the patient admitted via the E.D.?: Yes E.D. Visits: 0 Answers: Total Score: 5 Risk of Readmission: Low Risk Care Management Discharge Plan Reason for Hospitalization: alcohol withdrawal Discharge Plan: Jacob discharged to the community today after becoming medically cleared, and being cleared by [facility] from their mental health evaluation. He transported back to the [facility] via [facility] commuter bus; provided a bus schedule. He will follow up with his PCP, [facility], and his discharge plan of care. Patient/Family Education Needs: Review discharge instructions and limitations, discussion of self care needs including ask me three. SDOH Health Related Social Needs: No Data to Display
== END 2023-09-30 13:44 | disposition home or self-care (01) | DRG 896 ==
LOC: ER 23:39 → ICU 09-29 00:20
PROVIDERS: Family Medicine; Admitting Provider Family Medicine; Emergency Provider Physician Assistant; Visit Provider Family Medicine
DX: F10.131 Alcohol abuse with withdrawal delirium (principal); K29.21 Alcoholic gastritis with bleeding; R45.851 Suicidal ideations; F19.10 Other psychoactive substance abuse, uncomplicated; K52.9 Noninfective gastroenteritis and colitis, unspecified; S00.83XA Contusion of other part of head, initial encounter; Y35.811A Legal intervention involving manhandling, law enforcement official injured, initial encounter
CPT/HCPCS: 00123; 36415; 74177; 80048; 80053; 80307; 83690; 85027; 86850; 86900; 86901; 87040; 90715; 93005; 96365; 96366; 96372; 96375; 99291; 70450; 70486; 71260; 72125; 80320; 81003; 81015; 82140; 83735; 84100; 85025; 85610; 85730; 93010; 94667; J0780; J1885; J2470; J2543; J2560; J3411; J3490

== ENCOUNTER 2024-06-15 16:01 | Emergency (ER) | payer MEDICAID, SELFPAY ==
[2024-06-15 16:03] VITALS: BP 135/80; PULSE 100; RESP 16; TEMP 36.8; O2SAT 99
--- NOTE | 2024-06-15 17:20 | DI.CT_ITS ---
Exam(s) CT HEAD WO EXAM: CT HEAD WO CLINICAL HISTORY: head injury. TECHNIQUE: Imaging Protocol: Axial computed tomography images with coronal and sagittal reformatted images were created and reviewed COMPARISON: CT CT HEAD CERV SPINE FACIAL WO from 09/28/2023 FINDINGS: Ventricles and Extra axial spaces: Normal in size and morphology for the patient's age. Hemorrhage: None. Cerebral parenchyma: Normal. Midline shift: None. Brainstem/Cerebellum: Normal. Calvarium: Normal. Visualized Paranasal sinuses/Mastoids: Clear. Soft Tissues: Unremarkable. IMPRESSION: No acute intracranial process. RADIATION DOSE DELIVERED: 888.81mGy.cm Total DLP DATA REPOSITORY: All CT scans at this facility are submitted to the National Radiology Data Registry (NRDR) Dose Index Registry (DIR) with the [employer] (ACR). RADIATION OPTIMIZATION: All CT scans at this facility use at least one of these dose optimization te chniques: automated exposure control; mA and/or kV adjustment per patient size (includes targeted exa ms where dose is matched to clinical indication); or iterative reconstruction.
[2024-06-15] MEDS: chlordiazePOXIDE 25 MG CAP 100 MG PO (17:31)
[2024-06-15 17:36] LABS: *AMPHETAMINES SCREEN URINE Negative (Negative); *BARBITURATES SCREEN URINE Negative (Negative); *BENZODIAZEPINES SCREEN URINE Negative (Negative); Cannabinoids THC Positive (Negative); Cocaine Screen,Urine Positive (Negative); METHADONE URINE SCREEN Negative (Negative); OPIATES URINE SCREEN Negative (Negative)
[2024-06-15 17:37] LABS: Abs Immature Grans 0.06 10^3/uL (0.0-0.06); Absolute Basophil Count 0.04 10^3/uL (0.0-0.2); Absolute Eosinophil Count 0.01 10^3/uL (0.0-0.7); Absolute Lymphocyte Count 2.24 10^3/uL (1.2-3.4); Absolute Monocyte Count 1.17 10^3/uL (0.1-0.8); Absolute Neutrophil Count 9.33 10^3/uL (1.2-6.7); Basophils % 0.3 %; Eosinophils % 0.1 %; HCT 41.1 % (40.0-50.0); HGB 14.4 g/dL (13.5-17.5); Immature Grans % 0.5 %; Lymphocytes % 17.4 %; MCH 31.1 pg (27.0-33.0); MCV 89 fL (80-95); MPV 9.3 fL (8.0-11.0); Monocytes % 9.1 %; Neutrophils % 72.6 %; Platelet Count 249 10^3/uL (130-400); RBC 4.63 10^6/uL (4.36-5.78); RDW 12.6 % (11.8-14.1); RDW-SD 41.3 fL; WBC 12.85 10^3/uL (4.4-10.8)
[2024-06-15 17:38] LABS: Tricyclic Antidepressants Negative (Negative)
[2024-06-15 18:02] LABS: ALT 23 U/L (16-63); AST 24 U/L (15-37); Albumin 3.8 g/dL (3.4-5.0); Alkaline Phosphatase 78 U/L (46-116); Anion Gap 7.1 mmol/L (3-11); BUN 14 mg/dL (7-18); Bilirubin, Total 1.34 mg/dL (0.2-1.0); CO2 28.9 mmol/L (21.0-32.0); CREATININE 0.8 mg/dL (0.70-1.30); Calcium 9.1 mg/dL (8.5-10.1); Chloride 103 mmol/L (98-107); Estimated GFR 111.92 (mL/min/1.73m2); Glucose 113 mg/dL (74-106); Potassium 3.5 mmol/L (3.5-5.1); Sodium 139 mmol/L (136-145); TSH (W/Ref FT4) 1.25 uIU/mL (0.36-3.74); Total Protein 7.1 g/dL (6.4-8.2)
[2024-06-15 18:09] LABS: ETHANOL BLOOD < 3.0 mg/dL (<10)
[2024-06-15 18:17] LABS: Salicylate 3.4 mg/dL (<2.8)
[2024-06-15 18:19] LABS: Acetaminophen < 2 ug/mL (10-30)
--- NOTE | 2024-06-15 18:34 | W.ED.GENAD ---
Discharge Plan Disposition Patient Disposition: Psychiatric Hospital/Unit Specific Psychiatric Facility: Other Discharge Details Clinical Impression: Polysubstance abuse, Depression, Forehead laceration Primary Care Provider: Unknown,Unknown ED Provider: Dmitry Ludwig Home Meds and New Rx's Prescriptions: No Action buprenorphine-naloxone 8-2 mg tablet, sublingual 2.5 tab SUBLINGUAL DAILY Patient Comments: PLACE 2 & 1/2 TABLETS UNDER THE TONGUE ONCE DAILY clonidine HCl 0.1 mg tablet 0.1 mg PO BID Patient Comments: TAKE ONE TABLET BY MOUTH TWICE A DAY gabapentin 600 mg tablet 600 mg PO TID Patient Comments: TAKE ONE TABLET BY MOUTH THREE TIMES A DAY quetiapine 300 mg tablet 600 mg PO QHS Patient Comments: TAKE TWO TABLETS BY MOUTH EVERY EVENING AT BEDTIME olanzapine 20 mg tablet 20 mg PO QHS Patient Comments: TAKE ONE TABLET BY MOUTH AT BEDTIME HPI General Date/Time Provider Initiated Documentation: 06/15/24 16:23. Limitations to Documentation: no limitations. Information obtained by: patient. HPI Narrative: 44-year-old gentleman with past medical history of polysubstance abuse presents for evaluation of depression and suicidal ideation. He reports that this weekend he went on a leroy. He states that he had been sober for the last 4 months, but a friend showed up with a bottle of vodka and they drink that and also smoked some crack. He states he does not really remember details of what happened next but he did end up incarcerated and thinks that he lost his 's dog and is place to live. He states that he was feeling very suicidal as he was sobering up in the care home. And thus the officers brought him here for treatment. Related Data Home Medications ?Medication ?Instructions ?Recorded ?Confirmed buprenorphine 8 mg-naloxone 2 mg 2.5 tab sublingual DAILY 06/15/24 06/15/24 sublingual tablet clonidine HCl 0.1 mg tablet 0.1 mg PO BID 06/15/24 06/15/24 gabapentin 600 mg tablet 600 mg PO TID 06/15/24 06/15/24 olanzapine 20 mg tablet 20 mg PO QHS 06/15/24 06/15/24 quetiapine 300 mg tablet 600 mg PO QHS 06/15/24 06/15/24 Allergies Allergy/AdvReac Type Severity Reaction Status Date / Time acetaminophen (From Tylenol) Allergy Unknown Wheezing Verified 06/15/24 16:11 naproxen Allergy Wheezing Verified 06/15/24 16:11 General Stated Complaint: PsychEval MARYANN: 2 Exam Narrative Exam Narrative: Review of Systems: All systems reviewed & are unremarkable except as noted in HPI and below Well-developed, no acute distress 2 cm linear laceration at the hairline mid forehead, no active bleeding, no facial instability PERRL, normal conjunctiva RRR Unlabored respiratory effort clear bilaterally Nondistended abdomen Scattered scrapes and bruises, no deformities no focal neurologic deficits Flat affect, depressed mood with suicidal ideation Course Vital Signs Vital signs: Vital Signs Temperature 36.8 C 06/15/24 16:03 Pulse 100 H 06/15/24 16:03 Respiratory Rate 16 06/15/24 16:03 Blood Pressure 135/80 06/15/24 16:03 Pulse Oximetry 99 06/15/24 16:03 Temperature 36.8 C 06/15/24 16:03 Temperature Source Oral 06/15/24 16:03 Pulse 100 H 06/15/24 16:03 Respiratory Rate 16 06/15/24 16:03 Respiratory Pattern Normal 06/15/24 17:00 Blood Pressure 135/80 06/15/24 16:03 Blood Pressure Position Sitting 06/15/24 16:03 Pulse Oximetry 99 06/15/24 16:03 Oxygen Delivery Method Room Air 06/15/24 16:03 Oxygen Flow Rate 0 06/15/24 16:03 Pain Level 4 06/15/24 16:03 Lab/Test Results Lab/Test Results: Laboratory Tests Range/Units 06/15/24 06/15/24 17:16 17:29 WBC (4.4-10.8) 10^3/uL 12.85 H RBC (4.36-5.78) 10^6/uL 4.63 Hgb (13.5-17.5) g/dL 14.4 Hct (40.0-50.0) % 41.1 MCV (80-95) fL 89 MCH (27.0-33.0) pg 31.1 MCHC (32.0-36.0) % 35.0 RDW (11.8-14.1) % 12.6 Plt Count (130-400) 10^3/uL 249 MPV (8.0-11.0) fL 9.3 Immature Gran % % 0.5 Neutrophils % % 72.6 Lymphocytes % % 17.4 Monocytes % % 9.1 Eosinophils % % 0.1 Basophils % % 0.3 Nucleated RBC % (0.0-0.3) % 0.0 Absolute Neutrophils (1.2-6.7) 10^3/uL 9.33 H Absolute Lymphocytes (1.2-3.4) 10^3/uL 2.24 Absolute Monocytes (0.1-0.8) 10^3/uL 1.17 H Absolute Eosinophils (0.0-0.7) 10^3/uL 0.01 Absolute Basophils (0.0-0.2) 10^3/uL 0.04 Sodium (136-145) mmol/L 139 Potassium (3.5-5.1) mmol/L 3.5 Chloride (98-107) mmol/L 103 Carbon Dioxide (21.0-32.0) mmol/L 28.9 Anion Gap (3-11) mmol/L 7.1 BUN (7-18) mg/dL 14 Creatinine (0.70-1.30) mg/dL 0.8 Est GFR (CKD-EPI 2020) (mL/min/1.73m2) 111.92 Glucose (74-106) mg/dL 113 H Calcium (8.5-10.1) mg/dL 9.1 Total Bilirubin (0.2-1.0) mg/dL 1.34 H AST (15-37) U/L 24 ALT (16-63) U/L 23 Alkaline Phosphatase (46-116) U/L 78 Total Protein (6.4-8.2) g/dL 7.1 Albumin (3.4-5.0) g/dL 3.8 TSH (0.36-3.74) uIU/mL 1.25 Salicylates (<2.8) mg/dL 3.4 Urine Opiates Screen (Negative) Negative Urine Methadone Screen (Negative) Negative Acetaminophen (10-30) ug/mL < 2 Ur Barbiturates Screen (Negative) Negative Ur Tricyclics Screen (Negative) Negative Ur Amphetamines Screen (Negative) Negative U Benzodiazepines Scrn (Negative) Negative Urine Cocaine Screen (Negative) Positive A Ur THC Screen (Negative) Positive A Ethyl Alcohol (<10) mg/dL < 3.0 Medical Decision Making Emergent evaluation of depression and suicidal ideation in the setting of polysubstance abuse. Patient does have history of alcohol abuse and withdrawal symptoms that have been significant. He only binge drink over the weekend and has been sober for 4 months ago have a low suspicion for alcohol withdrawal. At this time he does not have any signs or symptoms concerning for alcohol withdrawal. He does have a forehead wound that was evaluated cleaned and at this time does not require suture repair. The patient had a head CT to evaluate for any intracranial injury and this was unremarkable. Lab work was obtained for medical clearance. At this time the patient is medically cleared for psychiatric evaluation and placement for ongoing depressive symptoms. Quality:[facility] Health Related Social Needs: No Data to Display REPLACED BY [facility] All Active Problems (Updated 06/15/24 @ 19:18 by Dmitry Ludwig MD) Forehead laceration (Acute) Depression (Chronic) Polysubstance abuse (Chronic) Hematemesis (Acute) Alcohol withdrawal delirium, acute, hyperactive (Acute) Social History Smoking/Tobacco Use Status: Unknown Smoking risk assessment performed?: Yes Alcohol Intake: current Alcohol Intake frequency: 3 or more drinks per day Alcohol type: beer, wine and hard liquor Drug use: Daily Substance use type: marijuana, crack/cocaine, heroin and painkillers Do you feel safe at home: No Do you feel safe in your relationship?: No Additional Social history: Pt states he left his 's house and is currently unhoused 06/15/24 PAWSS Have you Been Recently Intoxicated or Drunk Within the Last 30 days?: Yes Have you Ever Experienced Previous Episodes of Alcohol Withdrawal?: Yes Have you ever Experienced Withdrawal Seizures?: Yes Have you ever Experienced Delirium Tremens(DT)s?: Yes Have you ever undergone Alcohol Rehabilitation Treatment (i.e, inpt ot outpatient treatment programs)?: Yes Have you ever Experienced Blackouts?: Yes Have you ever Combined Alcohol with other Downers within the last 90 days?: Yes Have you ever Combined Alcohol with any other Substance of Abuse during the last 90 days?: Yes Positive Blood Alcohol level on Presentation? [PCS.BAL]: Unable to Obtain Evidence of Increased Autonomic Activity (i.e. HR>120, tremor, sweating, agitation, nausea)?: No Result: 8
[2024-06-16] MEDS: chlordiazePOXIDE 25 MG CAP 50 MG PO ×3 (06:21→14:02)
[2024-06-16] MEDS: cloNIDine 0.1 MG TAB PO (06:21)
[2024-06-16] MEDS: Gabapentin 600 MG TAB PO ×2 (06:22→14:03)
[2024-06-16 06:45] VITALS: BP 107/70; PULSE 79; TEMP 37.2; O2SAT 96
--- NOTE | 2024-06-16 06:55 | W.EDPROG ---
Date of service: 06/16/24 Time of Service: 07:00 Medical Decision Making This is a 44-year-old male patient with a past medical history significant for alcohol use disorder, boarding in our emergency department for suicidal and homicidal ideation. At the time that I took over his care he was medically cleared, he was receiving Librium as needed for symptoms of alcohol withdrawal, and had been restarted on his Suboxone at his home dose. The patient met with numerous social workers and while he endorses some suicidal thoughts and feelings he does state that these have been present for his whole life and he has not acted on them yet. He does have homicidal thoughts and feelings towards his , which are conditional depending on if she damages his things. The was notified at the time of patient discharge by social work. The patient was safety planned with an intent to go back to [place] and reestablish with his Suboxone clinic. I did provide him with his nighttime dose of Suboxone as a take-home. At this time, the patient has had a full medical evaluation and is safe for discharge to home. They are hemodynamically stable, ambulatory, and tolerating PO. They are understanding of the follow-up plan and return precautions. They left our facility without incident. Melissa Choudhary MD Medical Records Medical records reviewed: Yes I reviewed the patient's medical records. Lab Data Lab results reviewed: Yes I reviewed the patient's lab results. Quality:[facility] Health Related Social Needs: No Data to Display Discharge Plan Disposition Patient Disposition: Home Condition: Stable Discharge Details Clinical Impression: Polysubstance abuse, Depression, Forehead laceration Primary Care Provider: Unknown,Unknown ED Provider: Melissa Choudhary Home Meds and New Rx's Prescriptions: No Action buprenorphine-naloxone 8-2 mg tablet, sublingual 2.5 tab SUBLINGUAL DAILY Patient Comments: PLACE 2 & 1/2 TABLETS UNDER THE TONGUE ONCE DAILY clonidine HCl 0.1 mg tablet 0.1 mg PO BID Patient Comments: TAKE ONE TABLET BY MOUTH TWICE A DAY gabapentin 600 mg tablet 600 mg PO TID Patient Comments: TAKE ONE TABLET BY MOUTH THREE TIMES A DAY quetiapine 300 mg tablet 600 mg PO QHS Patient Comments: TAKE TWO TABLETS BY MOUTH EVERY EVENING AT BEDTIME olanzapine 20 mg tablet 20 mg PO QHS Patient Comments: TAKE ONE TABLET BY MOUTH AT BEDTIME Discharge Instructions Instructions: Suicide Prevention Additional Instructions: You were seen in the emergency department today for evaluation of suicidal thoughts and feelings and alcohol use disorder. In our department you do full physical examination performed, and received medications for management of alcohol withdrawal symptoms as well as your Suboxone. At this time, you have discussed a safety plan with [facility] with a plan to return to [place]. I am only able to provide you with tonight's dose of Suboxone, and you will need to follow-up with your providers to get any ongoing doses for management of your conditions. If you continue to feel depressed or have worsening of your suicidal or homicidal thoughts and feelings you should return to the nearest emergency department for reevaluation. Thank you for allowing us to be part of your care.
--- NOTE | 2024-06-16 07:09 | W.EDPROG ---
Date of service: 06/15/24 Time of Service: 23:00 Medical Decision Making This patient was signed out to me. Please see previous notes for H&P and initial eval. In brief, 44yo M here voluntarily for SI, medically cleared, pending [facility]. Hx ETOH withdrawal. On CIWA. Overnight no acute events. Signed out to oncoming physician, plan as above. Quality:SDOH Health Related Social Needs: No Data to Display Discharge Plan Disposition Patient Disposition: Psychiatric Hospital/Unit Specific Psychiatric Facility: Other Discharge Details Clinical Impression: Polysubstance abuse, Depression, Forehead laceration Primary Care Provider: Unknown,Unknown ED Provider: Melissa Choudhary Home Meds and New Rx's Prescriptions: No Action buprenorphine-naloxone 8-2 mg tablet, sublingual 2.5 tab SUBLINGUAL DAILY Patient Comments: PLACE 2 & 1/2 TABLETS UNDER THE TONGUE ONCE DAILY clonidine HCl 0.1 mg tablet 0.1 mg PO BID Patient Comments: TAKE ONE TABLET BY MOUTH TWICE A DAY gabapentin 600 mg tablet 600 mg PO TID Patient Comments: TAKE ONE TABLET BY MOUTH THREE TIMES A DAY quetiapine 300 mg tablet 600 mg PO QHS Patient Comments: TAKE TWO TABLETS BY MOUTH EVERY EVENING AT BEDTIME olanzapine 20 mg tablet 20 mg PO QHS Patient Comments: TAKE ONE TABLET BY MOUTH AT BEDTIME
--- NOTE | 2024-06-16 08:34 | CMSP_ITS ---
Date of service: 06/16/24 Time of Service: 08:34 Care Management Safety Plan Status Status: Voluntary Reason for Wait Reason for Wait: Inpatient Admission Safety Plan Safety Plan: VOLUNTARY FOR INPATIENT PSYCHIATRIC STABILIZATION.? Patient is appropriate in all interactions since arriving at [facility]; Pt has demonstrated appropriate coping and communication skills, has articulated his or her needs and concerns and is fully engaged during staff interactions. Safety plan has been established with patient, and care team, to adhere to patient goals, identify restrictions based on behavioral status, address nutrition, and determine allowed personal belongings, tools for hygiene and personal care. Determine level of activity including ambulation, level of supervision, visitors, and determine privileges based on behaviors and level of engagement by pt. Per [facility] research and insights executive, Jacob is endorsing SI/HI and will likely be EE'd if chooses to leave. Referrals are being sent, per [facility]. VOLUNTARY SAFETY PLAN: 1. Will remain on suicide precautions, in paper clothes 2. Will remain in Zone B under direct supervision of one-on-one staff at all times provided by [employer]; DEREK, [employer]ENS[employer] SPECIALIST aviation electronic warfare operator. 3. May have paper cups, plates, finger foods as well as a cardboard spoon with which to eat meals. 4. Follow [facility] Management of the Admitted Behavioral Health Patient policy. 5. Shower available in Zone B without restriction. 6. Personal belongings-soft items permitted at RN discretion. 7. Visitors- at RN discretion. 8. Activities: soft cart items approved per RN discretion. 9.? Bathroom available in Zone B without restriction. 10. Phone: limited to [facility] cordless phone at RN discretion. Due to VOLUNTARY status, if patient wishes to leave [facility], staff will contact [facility] Crisis Screener ([phone]) and Candy Feeder ([phone]) as soon as possible. In the event of elopement, notify [place] [employer] Police ([phone]). Patient is currently voluntarily at [facility] and seeking inpatient admission when a bed becomes available. [facility] Frontline Design Intern will continue seeking placement. Please contact the Candy Feeder ([phone]) and [facility] Design Intern ([phone]) for any needed changes in the Safety Plan. Safety plan has been provided to interdepartmental care team.
--- NOTE | 2024-06-16 08:34 | PDOC.CMSAFE ---
Date of service: 06/16/24 Time of Service: 08:34 Care Management Safety Plan Status Status: Voluntary Reason for Wait Reason for Wait: Inpatient Admission Safety Plan Safety Plan: VOLUNTARY FOR INPATIENT PSYCHIATRIC STABILIZATION.? Patient is appropriate in all interactions since arriving at [facility]; Pt has demonstrated appropriate coping and communication skills, has articulated his or her needs and concerns and is fully engaged during staff interactions. Safety plan has been established with patient, and care team, to adhere to patient goals, identify restrictions based on behavioral status, address nutrition, and determine allowed personal belongings, tools for hygiene and personal care. Determine level of activity including ambulation, level of supervision, visitors, and determine privileges based on behaviors and level of engagement by pt. Per [facility] assessment clinician, Jacob is endorsing SI/HI and will likely be EE'd if chooses to leave. Referrals are being sent, per [facility]. VOLUNTARY SAFETY PLAN: 1. Will remain on suicide precautions, in paper clothes 2. Will remain in Zone B under direct supervision of one-on-one staff at all times provided by [employer]; DEREK, HAY BUCKLER aviation safety inspector. 3. May have paper cups, plates, finger foods as well as a cardboard spoon with which to eat meals. 4. Follow [facility] Management of the Admitted Behavioral Health Patient policy. 5. Shower available in Zone B without restriction. 6. Personal belongings-soft items permitted at RN discretion. 7. Visitors- at RN discretion. 8. Activities: soft cart items approved per RN discretion. 9.? Bathroom available in Zone B without restriction. 10. Phone: limited to [facility] cordless phone at RN discretion. Due to VOLUNTARY status, if patient wishes to leave [facility], staff will contact [facility] Crisis Screener ([phone]) and Certified Pharmacist Assistant ([phone]) as soon as possible. In the event of elopement, notify [place] [employer] Police ([phone]). Patient is currently voluntarily at [facility] and seeking inpatient admission when a bed becomes available. [facility] Frontline Work Order Detailer will continue seeking placement. Please contact the Certified Pharmacist Assistant ([phone]) and [facility] Work Order Detailer ([phone]) for any needed changes in the Safety Plan. Safety plan has been provided to interdepartmental care team.
[2024-06-16] MEDS: Buprenorphine/Naloxone 8 mg/2 mg FILM 1 EACH SL ×2 (08:50→15:10)
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
== END 2024-06-16 15:31 | disposition home or self-care (01) ==
PROVIDERS: Emergency Medicine; Emergency Provider Emergency Medicine
DX: F19.10 Other psychoactive substance abuse, uncomplicated (principal); F32.A Depression, unspecified; S01.81XA Laceration without foreign body of other part of head, initial encounter; X58.XXXA Exposure to other specified factors, initial encounter
CPT/HCPCS: 00123; 80053; 80307; 96127; 99285; 70450; 80320; 80329; 84443; 85025

== ENCOUNTER 2025-04-14 17:02 | Emergency (ER) | payer MEDICAID, SELFPAY ==
[2025-04-14 17:11] VITALS: BP 139/90; PULSE 94; RESP 20; TEMP 36.9; O2SAT 96
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
[2025-04-14] MEDS: LORazepam 1 MG TAB PO (21:08)
[2025-04-14 21:22] LABS: Abs Immature Grans 0.04 10^3/uL (0.0-0.06); HCT 38.1 % (40.0-50.0); HGB 13.2 g/dL (13.5-17.5); Immature Grans % 0.4 %; MCH 32.0 pg (27.0-33.0); MCHC 34.6 % (32.0-36.0); MCV 93 fL (80-95); MPV 9.7 fL (8.0-11.0); Platelet Count 250 10^3/uL (130-400); RBC 4.12 10^6/uL (4.36-5.78); RDW 12.6 % (11.8-14.1); RDW-SD 43.0 fL; WBC 11.06 10^3/uL (4.4-10.8)
[2025-04-14 21:32] VITALS: RESP 16
[2025-04-14 21:35] LABS: Glucose Negative (Negative)
[2025-04-14 21:40] LABS: ALT 15 U/L (10-49); AST 35 U/L (<34); Albumin 3.8 g/dL (3.2-5.0); Alkaline Phosphatase 62 U/L (46-116); Anion Gap 6.5 mmol/L (3-11); BUN 17 mg/dL (9-23); Bilirubin, Total 0.50 mg/dL (0.2-1.2); CO2 26.5 mmol/L (20.0-31.0); Calcium 9.2 mg/dL (8.3-10.6); Chloride 105 mmol/L (98-107); Glucose 110 mg/dL (74-106); Potassium 3.6 mmol/L (3.5-5.1); Sodium 138 mmol/L (136-145); Total Protein 6.5 g/dL (5.7-8.2)
[2025-04-14 21:43] LABS: TSH (W/Ref FT4) 0.53 uIU/mL (0.55-4.78)
[2025-04-14 21:47] LABS: RBC 0-2 HPF (0-2); WBC 0-2 HPF (0-5)
[2025-04-14 21:48] LABS: C & S Indicated? No
--- NOTE | 2025-04-15 01:22 | PDOC.MHCN_ITS ---
Date of service: 04/15/25 Time of Service: 01:03 PHQ-9 Over the last 2 weeks, how often have you been bothered by any of the following problems? 1. Little interest or pleasure in doing things: nearly every day 2. Feeling down, depressed, or hopeless: nearly every day 3. Trouble falling or staying asleep, or sleeping too much: nearly every day 4. Feeling tired or having little energy: nearly every day 5. Poor appetite or overeating: nearly every day 6. Feeling bad about yourself - or that you are a failure or have let yourself and your family down: nearly every day 7. Trouble concentrating on things, such as reading the newspaper or watching television: nearly every day 8. Moving or speaking so slowly that other people could have noticed? - Or the opposite - being so fidgety or restless that you have been moving around a lot more than usual: nearly every day 9. Thoughts that you would be better off or of hurting yourself in some way: nearly every day Total score: 27 Source: Developed by Drs. Declan Hall, Nikky Avilez, Rodney Pérez and colleagues, with an educational gonzalo from [employer]. Suicide Severity Rate CSSRS Have you wished you were or wished you could go to sleep and not wake up?: Yes Have you actually had any thoughts of killing yourself?: Yes CSSRS2 Have you been thinking about how you might do this?: Yes Have you had these thoughts and had some intention of acting on them?: Yes Have you started to work out or worked out the details of how to kill yourself? Do you intend to carry out this plan?: Yes CSSRS3 Have you ever done anything, started to do anything or prepared to do anything to end your life?: Yes CSSRS4 Was this within the past three months?: Yes Screening Score Total Score: 8 Screening: Positive Mental Health Emergency Note Release [facility] release signed:: No Reason for Visit Jacob is previously known to 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 Jacob is currently at [facility] in [facility] as he admitted himself due to concerns for his mental health and substance usage. Jacob is seeking voluntary inpatient mental health treatment. In the last 2 weeks has the pt presented for ES prior to today?: Unknown Client Information Client is: New Well Housed: No,status: Homeless Non Suicidal Self Injury Current: No History: yes, Jacob reports he used to cut at 16. Safety Risk/Harm to Self or Others Current Ideation to Harm Self or Others: Yes to self. (Jacob has passive SI at this time no current plan or intent. ) Intent: no, has no intent. Plan: no.does not have a plan. History of suicide attempt: yes,history of suicide attempt reported. Details of previous suicide attempt: Jacob reports passive suicidal ideation with intent and plan within the last month but not currently. THIs past month Jacob attempted to overdose on variety of medications after drinking vodka and a separate time he lit his propane tank and closed the windows of his tent. Jacob reports he thinks everyone would be better off without him. CALM/Risk Level Does risk to harm exist?: yes. Access to means: No. Risk: Low Risk Duty to warn indicated: No Asssessment/Mental Status Appearance: Unremarkable Attitude: Cooperative Behavior: Unremarkable Speech: Normal Affect: Normal Mood: Stressed, Depressed and Anxious Thought process: Unremarkable Hallucinations: yes, Auditory Delusions: No evidence Perception: Not impaired Orientation: Fully orientated Memory: Intact Insight: Poor Judgement: Poor Neurovegetative Symptoms Sleep: Decrease Appetitie: Decrease Interests: Decrease Energy: Decrease Libido: Decrease Substance Use: Do you use nicotine?: Yes Have you used substances in the last 7 days?: yes, Client reports alcohol use and previous alcohol detox Additional Issues: Assaultive/Threatening Behavior: No Medical Concerns: No Client engaged in active self harm w/weapon: No Threatening to run away: No Child reported abuse/neglect: No Voluntarily presenting for services: Yes Domestic violence is a concern: No Extreme Psychosis or extreme behavior is present: No Impression Jacob is a [age] year old male who reports he is and homeless in the [facility]. Jacob reports he is not currently from here but is stuck up here doing to getting in trouble. Jacob has been up here for four years. Jacob reports he is struggling and does not know what to do. Jacob reports not taking his medications as prescribed, recently going to 24 hour detox for alcohol and wanting support. Jacob is endorsing passive suicidal ideation at this time with no intent or plan but within the last month Jacob has attempted to end his life in two different ways including gassing his tent and overdosing. Jacob reports he is also having auditory hallucinations telling him to end his life. Jacob would like to remain at [facility] and seek voluntary inpaitient treatment. Plan/Disposition Recommended Disposition: Hospitalization (Referrals will be sent on 04.15) facilities contacted. Plan: Jacob will remain at [facility] until treatment is secured. Jacob will be seen once daily by [facility] until then. Person reported agreement to plan: Yes Reports/communication Outcome discussed with: ED/Personnel
[2025-04-15 07:21] VITALS: BP 159/88; PULSE 85; TEMP 36.2; O2SAT 97
--- NOTE | 2025-04-15 07:53 | ED.PSYCHBOAR ---
Date of service: 04/15/25 Time of Service: 07:53 Psychiatric Border Handoff Update Brief Story: Patient here on voluntary status for thoughts of self-harm, no reported issues on prior shift, will continue to monitor until safe disposition found. Status: voluntary Mediation Reconciliation performed: Yes Code Status ordered: Yes Diet ordered: Yes Discharge Plan Discharge Details Chief Complaint: GenMedical Clinical Impression: Depression Primary Care Provider: Unknown,Unknown ED Provider: Hany Vasquez Home Meds and New Rx's Prescriptions: No Action buprenorphine-naloxone 8-2 mg tablet, sublingual 2.5 tab SUBLINGUAL DAILY Patient Comments: PLACE 2 & 1/2 TABLETS UNDER THE TONGUE ONCE DAILY clonidine HCl 0.1 mg tablet 0.1 mg PO BID Patient Comments: TAKE ONE TABLET BY MOUTH TWICE A DAY gabapentin 600 mg tablet 600 mg PO TID Patient Comments: TAKE ONE TABLET BY MOUTH THREE TIMES A DAY quetiapine 300 mg tablet 600 mg PO QHS Patient Comments: TAKE TWO TABLETS BY MOUTH EVERY EVENING AT BEDTIME olanzapine 20 mg tablet 20 mg PO QHS Patient Comments: TAKE ONE TABLET BY MOUTH AT BEDTIME trazodone 100 mg tablet 100 mg PO HS Patient Comments: TAKE ONE TABLET BY MOUTH AT BEDTIME buspirone 15 mg tablet 15 mg PO BID Patient Comments: TAKE ONE TABLET BY MOUTH TWICE A DAY
[2025-04-15] MEDS: Gabapentin 600 MG TAB PO ×2 (08:03→13:35)
[2025-04-15] MEDS: cloNIDine 0.1 MG TAB PO (08:03)
[2025-04-15] MEDS: busPIRone 15 MG TAB PO (08:03)
[2025-04-15] MEDS: Buprenorphine/Naloxone 12 mg/3 mg FILM 1 EACH SL (08:03)
[2025-04-15 16:52] LABS: Cannabinoids THC Positive (Negative)
--- NOTE | 2025-04-16 15:04 | PDOC.MHPN2 ---
Date of service: 04/15/25 Time of Service: 12:30 Mental Health Emergency Note Release [facility] release signed:: Yes Reason for Visit Mr Palm is a 45 year old male who resides in the [facility] and is currently unhoused. The client reports that he has made two suicide attempts within the last month one of which was trying to use carbon monoxide in his tent. The client states that he has been living unhoused in a tent for the last eight months and needs help with his drinking. The client reports that he takes suboxone. The states that when he is off his suboxone he drinks alcohol and due to his mental health struggles of PTSD. The client reports that wants help and if he leaves he will overdose on pills or hang himself from a tree with his hoodie. The client is voluntarily seeking in patient treatment. In the last 2 weeks has the pt presented for ES prior to today?: No CALM/Risk Level Does risk to harm exist?: No Asssessment/Mental Status Appearance: Unremarkable Attitude: Friendly Behavior: Unremarkable Speech: Normal Affect: Normal Mood: Depressed Thought process: Unremarkable Hallucinations: No evidence Delusions: No evidence Attention: Unremarkable Perception: Not impaired Orientation: Fully orientated Memory: Intact Insight: Fair Judgement: Poor Neurovegetative Symptoms Sleep: No change Appetitie: No change Interests: No change Energy: No change Libido: Not applicable Impression Mr Palm is a 45 year old male who resides in the [facility] and is currently unhoused. The client reports that he has made two suicide attempts within the last month one of which was trying to use carbon monoxide in his tent. The client states that he has been living unhoused in a tent for the last eight months and needs help with his drinking. The client reports that he takes suboxone. The states that when he is off his suboxone he drinks alcohol and due to his mental health struggles of PTSD. The client reports that wants help and if he leaves he will overdose on pills or hang himself from a tree with his hoodie. The client is voluntarily seeking in patient treatment.? Plan/Disposition Recommended Disposition: Hospitalization facilities contacted. Plan: The client is seeking voluntary in patient treatment. Reports/communication Outcome discussed with: ED/Personnel
== END 2025-04-15 15:25 | disposition home or self-care (01) ==
PROVIDERS: Physician Assistant; Emergency Provider Emergency Medicine
DX: F32.A Depression, unspecified (principal); F41.9 Anxiety disorder, unspecified; Z59.02 Unsheltered homelessness
CPT/HCPCS: 00123; 36415; 80053; 80307; 96127; 99283; 80320; 81003; 81015; 84439; 84443; 85025